=== PATIENT | female | born 1960 | race African-American/Black ===

== ENCOUNTER 2024-07-22 16:41 | Emergency (ER) | payer OTHER ==
[~2024-07-22] VITALS: Ht 167.6 cm; Wt 82.0 kg
[2024-07-22 16:42] VITALS: O2SAT 100
[2024-07-22 17:39] LABS: BASOPHILS % 0.6 % (0.0-2.0); HEMATOCRIT. 34.6 % (36.0-48.0); HEMOGLOBIN. 11.3 g/dL (12.0-16.0); LYMPHOCYTES % 23.8 % (20.0-50.0); MEAN CORPUSCULAR HGB CONC 32.6 g/dL (31.0-37.0); MONOCYTES % 4.5 % (2.0-8.0); NEUTROPHILS % 70.1 % (40.0-76.0); PLATELET 289 x1000/uL (130-400); RED BLOOD CELL COUNT 3.76 mill/uL (4.2-5.4); RED CELL DISTRIBUTION WIDTH 13.7 % (11.6-14.6); WHITE BLOOD COUNT 8.6 x1000/uL (4.5-11.0)
[2024-07-22 17:41] LABS: CHLORIDE 106 mEq/L (98-107); POTASSIUM 3.4 mEq/L (3.5-5.1); SODIUM 140 mEq/L (136-145)
[2024-07-22 17:42] LABS: CARBON DIOXIDE 25 mEq/L (21-32)
[2024-07-22 17:43] LABS: CALCIUM 9.3 mg/dL (8.7-10.4)
[2024-07-22 17:44] LABS: PROTHROMBIN TIME 10.8 sec (9.6-11.0)
[2024-07-22 17:47] LABS: CREATININE 0.9 mg/dL (0.6-1.0); GLUCOSE 101 mg/dL (70-105); UREA NITROGEN BLOOD 15 mg/dL (9-23)
[2024-07-22] MEDS: ACETAMINOPHEN 325MG TABLET PO STA (17:51)
[2024-07-22 17:55] LABS: TROPONIN I HIGH SENSITIVITY < 4 ng/L (3.0-34)
[2024-07-22] MEDS: SODIUM CHLORIDE 0.9% 1,000 ML IV ONE (18:28)
[2024-07-22 20:07] VITALS: BP 127/69; PULSE 79; RESP 16; TEMP 36.9; O2SAT 97
== END 2024-07-22 20:16 | disposition home or self-care (01) ==
LOC: EDBD 16:41 → ER 16:41
DX: S09.90XA Unspecified injury of head, initial encounter (principal); R55 Syncope and collapse; I10 Essential (primary) hypertension; F12.90 Cannabis use, unspecified, uncomplicated; W19.XXXA Unspecified fall, initial encounter; Y93.89 Activity, other specified; Y92.89 Other specified places as the place of occurrence of the external cause; Y99.8 Other external cause status
CPT/HCPCS: 80048; 83880; 85025; 85610; 84484; 36415; 70450; 96360; 99284; J7030; Z7610 ×2; A4606